=== PATIENT | female | born 1985 | race African-American/Black ===

== ENCOUNTER 2017-04-20 19:07 | Emergency (ER) | payer SELFPAY ==
[~2017-04-20] VITALS: Ht 165.1 cm; Wt 50.0 kg
[2017-04-20 21:15] VITALS: BP 134/82
== END 2017-04-20 22:09 | disposition left against medical advice (07) ==
LOC: ER 19:17
DX: R07.81 Pleurodynia (principal); V49.40XA Driver injured in collision with unspecified motor vehicles in traffic accident, initial encounter; Y93.89 Activity, other specified; Y92.410 Unspecified street and highway as the place of occurrence of the external cause
CPT/HCPCS: 99283